=== PATIENT | male | born 1950 | race African-American/Black ===

== ENCOUNTER 2016-07-07 06:05 | Emergency (ER) | payer OTHER | END 2016-07-07 09:32 | disposition home or self-care (01) | LOC: ER 06:05 | DX: S39.012A Strain of muscle, fascia and tendon of lower back, initial encounter (principal); V43.52XA Car driver injured in collision with other type car in traffic accident, initial encounter | CPT/HCPCS: 70450; 72100; 72125; 73030-LT; 73560-LT; 99284 ==